=== PATIENT | female | born 1960 | race American Indian/Alaskan Native ===

== ENCOUNTER 2021-04-29 14:10 | Inpatient (IN) | payer MEDICARE ==
--- NOTE | 2021-04-29 14:59 | Event Note ---
ED Screening Note ED Screening Note: History given by patient's daughter Patient brought in by her daughter due to possible clot in her AV graft Patient last had a full dialysis treatment on Saturday04/24/2021 She states that they went to dialysis on Saturday04/26/2021 but there was a clot in the graft so she was unable to be dialyzed she states that they went to her vascular doctor Dr. Ireland yesterday to have the graft declotted She states that she took her to dialysis today but again the graft was not working and she was unable to be dialyzed This initial assessment/diagnostic orders/clinical plan/treatment(s) is/are subject to change based on patients health status, clinical progression and re- assessment by fellow clinical providers in the ED. Further treatment and workup at subsequent clinical providers discretion. Patient/guardian urged not to elope from the ED as their condition may be serious if not clinically assessed and m anaged. Initial orders include: Labs Main ED
[2021-04-29 15:25] LABS: Basophils # (Auto) 0.1 K/mm3 (0.0-0.1); Basophils % (Auto) 0.8 % (0.0-1.8); Eosinophils # (Auto) 0.3 K/mm3 (0.0-0.4); Eosinophils % (Auto) 3.5 % (0.0-4.3); Hematocrit 37.1 % (30.3-42.9); Hemoglobin 11.8 gm/dl (10.1-14.3); Lymphocytes # (Auto) 1.4 K/mm3 (1.2-5.4); Lymphocytes % (Auto) 17.6 % (13.4-35.0); Mean Corpuscular HGB Conc 32 % (30-34); Mean Corpuscular Volume 89 fl (79-97); Monocytes # (Auto) 0.8 K/mm3 (0.0-0.8); Monocytes % (Auto) 9.4 % (0.0-7.3); Platelet Count 151 K/mm3 (140-440); Red Blood Count 4.19 M/mm3 (3.65-5.03); Red Cell Distribution Width 15.7 % (13.2-15.2)
[2021-04-29 15:38] LABS: Albumin 4.4 g/dL (3.9-5); Blood Urea Nitrogen 94 mg/dL (7-17); Calcium 11.1 mg/dL (8.4-10.2); Hemolysis Index 10
[2021-04-29 15:39] LABS: Partial Thromboplastin Time 34.9 Sec. (24.2-36.6)
[2021-04-29 15:42] LABS: Alanine Aminotransferase < 5 units/L (7-56); BUN/Creatinine Ratio 5
[2021-04-29] MEDS ORDERED: DEXTROSE 50% IN WATER (25GM) 50 ML SYRINGE IV ONE (16:31)
[2021-04-29] MEDS ORDERED: INSULIN REGULAR, HUMAN 100 UNITS/1 ML IV ONE (16:31)
[2021-04-29] MEDS ORDERED: SODIUM POLYSTYRENE 15 GM/60 ML ORAL LIQD PO ONE (16:32)
[2021-04-29] MEDS ORDERED: ALBUTEROL 2.5 MG/3 ML NEBU IH ONE (16:32)
--- NOTE | 2021-04-29 16:38 | Emergency Department Report ---
ED General Adult HPI - General Chief complaint: Medical Clearance Stated complaint: GRAPH CLOTTED DIALYSIS SENT Time Seen by Provider: 04/29/21 14:57 Source: patient Mode of arrival: Wheelchair Limitations: No Limitations - History of Present Illness Initial comments: 60-year-old female, history of end-stage renal disease ([facility] dialysis schedule), presents to the ED for fistula malfunction. Patient last dialyzed on Saturday, 5 days ago. Unable to be dialyzed since because her graft clotted off. Patient was seen by her vascular surgeon, Dr. Lomax, in office on yesterday for declotting procedure. Patient went to dialysis today, but was still unable to be dialyzed. Patient was sent to the emergency room. -: days(s) (3) Location: upper extremity Quality: other (Painless) Consistency: constant Improves with: none Worsens with: none Associated Symptoms: denies: chest pain, shortness of breath Treatments Prior to Arrival: none - Related Data Home Medications Medication Instructions Recorded Confirmed Last Taken Cinacalcet [Sensipar] 30 mg PO DAILY 10/16/13 04/30/21 01/23/15 30 mg Midodrine [Proamatine] 5 mg PO BID 10/16/13 04/30/21 01/23/15 5 mg Sevelamer Carbonate [Renvela] 800 mg PO TIDWM 10/16/13 04/30/21 01/23/15 800 mg Previous Rx's Medication Instructions Recorded Last Taken Type HYDROcodone/APAP 5-325 [[place] 1 each PO Q6HR PRN #60 tablet 01/26/15 Unknown Rx 5-325 mg TAB] Allergies Allergy/AdvReac Type Severity Reaction Status Date / Time No Known Allergies Allergy Verified 10/16/13 11:08 ED Review of Systems ROS: Stated complaint: GRAPH CLOTTED DIALYSIS SENT Other details as noted in HPI Comment: All other systems reviewed and negative Constitutional: denies: fever Respiratory: denies: shortness of breath Cardiovascular: denies: chest pain ED Past Medical Hx - Past Medical History Previous Medical History?: Yes Hx Hypertension: Yes Hx Congestive Heart Failure: No Hx Diabetes: No Hx Renal Disease: Yes (dialysis m,w,f) Hx Asthma: No Hx COPD: No - Surgical History Past Surgical History?: Yes Additional Surgical History: Patient has a graft to right and left upper extremities - Social History Smoking Status: Never Smoker - Medications Home Medications: Home Medications Medication Instructions Recorded Confirmed Last Taken Type Cinacalcet [Sensipar] 30 mg PO DAILY 10/16/13 04/30/21 01/23/15 History 30 mg Midodrine [Proamatine] 5 mg PO BID 10/16/13 04/30/21 01/23/15 History 5 mg Sevelamer Carbonate [Renvela] 800 mg PO TIDWM 10/16/13 04/30/21 01/23/15 History 800 mg HYDROcodone/APAP 5-325 [[place] 1 each PO Q6HR PRN #60 tablet 01/26/15 04/30/21 Unknown Rx 5-325 mg TAB] ED Physical Exam - General Limitations: No Limitations General appearance: alert, in no apparent distress - Head Head exam: Present: atraumatic, normocephalic - Eye Eye exam: Present: normal appearance, EOMI - ENT ENT exam: Present: mucous membranes moist - Neck Neck exam: Present: normal inspection - Respiratory Respiratory exam: Present: normal lung sounds bilaterally. Absent: respiratory distress - Cardiovascular Cardiovascular Exam: Present: regular rate, normal rhythm, other (no palpable thrill in left upper extremity graft site) - GI/Abdominal GI/Abdominal exam: Present: soft. Absent: distended, tenderness - Extremities Exam Extremities exam: Present: normal inspection - Neurological Exam Neurological exam: Present: alert, oriented X3 - Psychiatric Psychiatric exam: Present: normal affect, normal mood - Skin Skin exam: Present: warm, dry, intact, normal color ED Course Vital Signs 04/29/21 04/29/21 04/29/21 14:35 16:57 19:55 Temperature 98.4 F 97.6 F Pulse Rate 75 82 83 Respiratory 18 17 18 Rate Blood Pressure Blood Pressure 129/81 139/85 115/65 [Right] O2 Sat by Pulse 94 95 96 Oximetry 04/29/21 04/29/21 04/29/21 20:10 20:15 20:30 Temperature 98.4 F Pulse Rate 79 75 93 H Respiratory 18 Rate Blood Pressure 107/67 106/65 91/57 Blood Pressure [Right] O2 Sat by Pulse Oximetry - Consultations Consultation #1: 04/29/21 16:[address] Ireland, vascular surgeon. States patient has a hero graft. He informs that he no longer has privileges at this hospital. He is okay with me calling our vascular group here at [facility]. Consultation #2: 04/29/21 17:[address] Ha, leather tacker. He is aware of the patient will arrange for dialysis. Consultation #3: 04/29/21 17:[address] Romero, vascular surgeon. Will come in to place vascular access for dialysis. ED Medical Decision Making - Lab Data Result diagrams: 04/29/21 15:01 04/30/21 07:13 - EKG Data -: EKG Interpreted by Me EKG shows normal: sinus rhythm, axis, intervals, QRS complexes, ST-T waves Rate: normal - EKG Data Interpretation: no acute changes - Medical Decision Making 60-year-old female presents to ED with clotted dialysis graft. Patient was last dialyzed 5 days ago. She was seen by her vascular surgeon on yesterday for declotting procedure, however, when she returned to dialysis today they were unable to access her graft. No palpable thrill on exam. Potassium is 6.6. Patient has no shortness of breath, she is in no respiratory distress. O2 sats are normal. Spoke with Dr. Ha, who will be arranging dialysis. Spoke with Dr. Romero, who will be placing a permacath. - Differential Diagnosis hyperkalemia, graft malfunction Critical Care Time: Yes Critical care time in (mins) excluding proc time.: 35 Critical care attestation.: If time is entered above; I have spent that time in minutes in the direct care of this critically ill patient, excluding procedure time. Critical Care Time: 35 min ED Disposition Clinical Impression: ESRD needing dialysis, Hyperkalemia Hemodialysis graft malfunction Qualifiers: Encounter type: initial encounter Qualified Code(s): T82.41XA - Breakdown (mechanical) of vascular dialysis catheter, initial encounter Disposition: DC-09 OP ADMIT IP TO THIS HOSP Is pt being admited?: Yes Condition: Stable Time of Disposition: 18:09
[2021-04-29] MEDS ORDERED: CALCIUM GLUCONATE 1,000 MG in SODIUM CHLORIDE 0.9% 100 ML IV ONE (17:00)
[2021-04-29] MEDS ORDERED: SODIUM CHLORIDE 0.9% 100 ML IV PRN (17:17)
--- NOTE | 2021-04-29 17:25 | Event Note ---
Date: 04/29/21 received call from ed for k of 6.6 with clotted hd access, orders placed for stat hd after dialysis access placement. patient aware of plan and consents to dialysis
[2021-04-29 18:27] LABS: Hepatitis B Surface Antigen Non-Reactive (Negative)
--- NOTE | 2021-04-29 18:45 | History and Physical Report ---
History of Present Illness Chief complaint: I need dialysis History of present illness: 60 YO Female with ESRD on HD(M,W,F), HTN, Obesity presents to ED for evaluation. Patient reports "I need dialysis". Patient states that she last underwent dialysis on April 24. Patient states that she has been unable to receive her routine scheduled dialysis due to clotted graft access. Patient was seen and evaluated in her vascular surgeon's office on 04/28/2021 for declotting procedure. Patient presented to her routine dialysis center today but was unable to be dialyzed due to clotted dialysis access. Patient transported to [facility] via private vehicle for further care and evaluation of the aforementioned symptoms. The pat mellisa was seen and evaluated in the emergency department. All lab and image studies reviewed. The patient was found to have end-stage renal disease in need of urgent dialysis, as well as clotted dialysis access. Vascular surgery team consulted in the emergency department. Patient is pending placement of a permacath. Patient denies fever, chills, chest pain, palpitation, productive cough, skin rash, recent ill contacts, or known exposure to COVID-19. No prior admission for review. All medication listed at time of admission has been reconciled. Advanced care planning conducted in ED. Past History Past Medical History: ESRD, hypertension Past Surgical History: Other (Dialysis access) Social history: single Family history: diabetes, hypertension Medications and Allergies Allergies Allergy/AdvReac Type Severity Reaction Status Date / Time No Known Allergies Allergy Verified 10/16/13 11:08 Home Medications Medication Instructions Recorded Confirmed Last Taken Type Cinacalcet [Sensipar] 30 mg PO DAILY 10/16/13 01/24/15 01/23/15 History 30 mg Midodrine [Proamatine] 5 mg PO BID 10/16/13 01/24/15 01/23/15 History 5 mg Sevelamer Carbonate [Renvela] 800 mg PO TIDWM 10/16/13 01/24/15 01/23/15 History 800 mg HYDROcodone/APAP 5-325 [[place] 1 each PO Q6HR PRN #60 tablet 01/26/15 Unknown Rx 5-325 mg TAB] Active Meds: Active Medications Sodium Chloride (Nacl 0.9%) 100 mls @ 999 mls/hr IV JACK PRN PRN Reason: Hypotension Review of Systems Constitutional: no weight loss Ears, nose, mouth and throat: no ear pain, no ear discharge, no tinnitis, no decreased hearing, no nose pain, no nasal congestion Cardiovascular: no chest pain, no palpitations, no edema Respiratory: no cough, no hemoptysis, no shortness of breath, no dyspnea on exertion Gastrointestinal: no abdominal pain, no nausea, no constipation, no change in bowel habits, no hematemesis Genitourinary Female: no pelvic pain, no flank pain, no dysuria, no urinary frequency, no urgency Rectal: no pain, no incontinence, no bleeding Musculoskeletal: no neck stiffness, no neck pain, no arm numbness/tingling, no low back pain, no shooting leg pain, no leg numbness/tingling Integumentary: no rash, no pruritis, no redness, no sores, no wounds, no boils Neurological: no head injury, no paralysis, no parathesias, no numbness Psychiatric: no anxiety, no change in sleep habits, no change in libido Endocrine: no cold intolerance, no polyphagia, no excessive thirst, no polyuria, no nocturia, no flushing Hematologic/Lymphatic: no easy bruising, no easy bleeding, no lymphadenopathy Allergic/Immunologic: no urticaria, no persistent infections Exam - Constitutional Vitals: Temp Pulse Resp BP Pulse Ox 98.4 F 82 17 139/85 95 04/29/21 14:35 04/29/21 16:57 04/29/21 16:57 04/29/21 16:57 04/29/21 16:57 General appearance: Present: mild distress - EENT Eyes: Present: PERRL ENT: hearing intact, clear oral mucosa - Neck Neck: Present: supple, normal ROM - Respiratory Respiratory effort: normal Respiratory: bilateral: CTA - Cardiovascular Heart Sounds: Present: S1 & S2. Absent: rub, click - Extremities Extremities: pulses symmetrical, No edema Peripheral Pulses: within normal limits - Abdominal General gastrointestinal: Present: soft, non-tender, non-distended, normal bowel sounds Female genitourinary: Present: normal - Integumentary Integumentary: Present: clear, warm, dry - Musculoskeletal Musculoskeletal: gait normal, strength equal bilaterally - Psychiatric Psychiatric: appropriate mood/affect, intact judgment & insight - Neurologic Neurologic: CNII-XII intact, moves all extremities Results - Labs CBC & Chem 7: 04/29/21 15:01 04/29/21 15:01 Labs: Abnormal lab results 04/29/21 04/29/21 Range/Units 15:01 15:01 RDW 15.7 H (13.2-15.2) % [place] % (Auto) 9.4 H (0.0-7.3) % Potassium 6.6 H* (3.6-5.0) mmol/L BUN 94 H (7-17) mg/dL Creatinine 18.6 H (0.6-1.2) mg/dL Calcium 11.1 H (8.4-10.2) mg/dL AST < 5 L (5-40) units/L ALT < 5 L (7-56) units/L Assessment and Plan - Patient Problems (1) ESRD needing dialysis Current Visit: Yes Status: Acute Plan to address problem: Nephrology team consulted, dialysis as per renal team, supportive care. Avoid nephrotoxic agents. (2) Obesity (BMI 30.0-34.9) Current Visit: Yes Status: Acute Plan to address problem: Balanced diet, increase physical activity at discharge, outpatient pulmonary follow-up for sleep study. (3) Hemodialysis graft malfunction Current Visit: Yes Status: Acute Qualifiers: Encounter type: initial encounter Qualified Code(s): T82.41XA - Breakdown (mechanical) of vascular dialysis catheter, initial encounter Plan to address problem: Vascular surgery team consulted patient pending permacath placement (4) Hyperkalemia Current Visit: Yes Status: Acute Plan to address problem: Kayexalate, calcium gluconate, urgent dialysis. No EKG changes. (5) DVT prophylaxis Current Visit: Yes Status: Acute Plan to address problem: SCD to bilateral lower extremities while in bed, patient is ambulatory (6) Advance care planning Current Visit: Yes Status: Acute Plan to address problem: Disease education conducted, care plan discussed, diagnoses discussed, prognosis discussed, patient and daughter knowledges understanding and agreement with care plan, +30 minutes.
[2021-04-29 18:51] LABS: Hepatitis C Virus Antibody Non-Reactive (NonReactive)
--- NOTE | 2021-04-29 19:09 | Operative Report ---
Operative Report Operative Report: Exam: Ultrasound guided placement of Vas-Cath Clinical indication: Patient with a history of end-stage renal disease on hemodialysis through a left upper arm loop graft. Graft has been clotted and was intervened on by [facility] vascular on Saturday without success. Patient has not had dialysis since Saturday and is hyperkalemic. Date: 04/29/2021 Procedure: Following an explanation of the risks, benefits and alternatives; written informed consent was obtained. The procedure was performed in the emergency department. Initial ultrasound evaluation of the patient's right groin demonstrated a patent right common femoral vein. The patient's right groin was prepped and draped in the usual sterile fashion. 1% lidocaine was used for anesthesia. Under ultrasound guidance, a 7 cm 18-gauge needle was advanced into the common femoral vein. A 0.035 guidewire advanced centrally easily. The needle was rem selwyn and following serial dilation over the guidewire, a 30 cm dialysis catheter was advanced over the guidewire centrally. The guidewire was removed. Nonpulsatile blood return from all 3 ports. The catheter was flushed and locked with sterile saline. The catheter was securely fastened to the skin surface using 2-0 nylon suture and a sterile dressing applied. The patient tolerated the procedure well. There were no immediate postprocedure complications. Impression: Ultrasound-guided placement of 30 cm Vas-Cath via the right common femoral vein.
[2021-04-29] MEDS ORDERED: oxyCODONE /ACETAMINOPHEN 5-325MG TAB PO PRN (19:30)
[2021-04-29] MEDS ORDERED: HYDROmorphone 1 MG/1 ML INJ IV PRN (19:30)
[2021-04-29] MEDS ORDERED: ONDANSETRON 4 MG/2 ML INJ IV PRN (19:30)
[2021-04-29] MEDS ORDERED: ACETAMINOPHEN 325 MG TAB PO PRN (19:30)
[2021-04-29] MEDS ORDERED: ALBUTEROL 2.5 MG/3 ML NEBU IH PRN (19:30)
[2021-04-29] MEDS: MIDODRINE 5 MG TAB PO SCH (21:33)
[2021-04-30] MEDS: CINACALCET 30 MG TAB PO SCH (09:16)
[2021-04-30] MEDS: MIDODRINE 5 MG TAB PO SCH ×2 (09:16→21:25)
[2021-04-30] MEDS: SEVELAMER CARBONATE 800 MG TAB PO SCH ×3 (09:16→18:04)
[2021-04-30 09:36] LABS: Albumin 3.8 g/dL (3.9-5); Blood Urea Nitrogen 30 mg/dL (7-17); Calcium 10.3 mg/dL (8.4-10.2); Hemolysis Index 0
[2021-04-30 09:37] LABS: Alanine Aminotransferase < 5 units/L (7-56); BUN/Creatinine Ratio 3
--- NOTE | 2021-04-30 12:35 | Consultation ---
History of Present Illness - Reason for Consult Consult date: 04/30/21 end stage renal disease, hyperkalemia Requesting physician: ROBERT MARC - History of Present Illness 60-year-old female, history of end-stage renal disease ([facility] dialysis schedule), presents to the ED for fistula malfunction. Patient last dialyzed on Saturday, 5 days ago. Unable to be dialyzed since because her graft clotted off. Patient was seen by her vascular surgeon, Dr. Lomax, in office on yesterday for declotting procedure. Patient went to dialysis today, but was still unable to be dialyzed. Patient was sent to the emergency room. -: days(s) (3) Location: upper extremity Quality: other (Painless) Consistency: constant Improves with: none Worsens with: none Associated Symptoms: denies: chest pain, shortness of breath Treatments Prior to Arrival: none ROS: Stated complaint: GRAPH CLOTTED DIALYSIS SENT Other details as noted in HPI Comment: All other systems reviewed and negative Constitutional: denies: fever Respiratory: denies: shortness of breath Cardiovascular: denies: chest pain - Past Medical History Previous Medical History?: Yes Hx Hypertension: Yes Hx Congestive Heart Failure: No Hx Diabetes: No Hx Renal Disease: Yes (dialysis m,w,f) Hx Asthma: No Hx COPD: No - Surgical History Past Surgical History?: Yes Additional Surgical History: Patient has a graft to right and left upper extremities - Social History Smoking Status: Never Smoker Past History Past Medical History: ESRD, hypertension Past Surgical History: Other (Dialysis access) Social history: single Family history: diabetes, hypertension Medications and Allergies Allergies Allergy/AdvReac Type Severity Reaction Status Date / Time No Known Allergies Allergy Verified 10/16/13 11:08 Home Medications Medication Instructions Recorded Confirmed Last Taken Type Cinacalcet [Sensipar] 30 mg PO DAILY 10/16/13 04/30/21 01/23/15 History 30 mg Midodrine [Proamatine] 5 mg PO BID 10/16/13 04/30/21 01/23/15 History 5 mg Sevelamer Carbonate [Renvela] 800 mg PO TIDWM 10/16/13 04/30/21 01/23/15 History 800 mg HYDROcodone/APAP 5-325 [[place] 1 each PO Q6HR PRN #60 tablet 01/26/15 04/30/21 Unknown Rx 5-325 mg TAB] Active Meds: Active Medications Acetaminophen (Acetaminophen 325 Mg Tab) 650 mg PO Q4H PRN PRN Reason: Pain MILD(1-3)/Fever >100.5/SCHRADER Albuterol (Albuterol 2.5 Mg/3 Ml Nebu) 2.5 mg IH Q4HRT PRN PRN Reason: Shortness Of Breath Cinacalcet (Cinacalcet 30 Mg Tab) 30 mg PO DAILY [facility] Last Admin: 04/30/21 09:16 Dose: 30 mg Documented by: Hydromorphone HCl (Hydromorphone 1 Mg/1 Ml Inj) 0.5 mg IV Q12H PRN PRN Reason: Pain , Severe (7-10) Sodium Chloride (Nacl 0.9%) 100 mls @ 999 mls/hr IV JACK PRN PRN Reason: Hypotension Midodrine (Midodrine 5 Mg Tab) 5 mg PO BID [facility] Last Admin: 04/30/21 09:16 Dose: 5 mg Documented by: Ondansetron HCl (Ondansetron 4 Mg/2 Ml Inj) 4 mg IV Q8H PRN PRN Reason: Nausea And Vomiting Oxycodone/Acetaminophen (Oxycodone /Acetaminophen 5-325mg Tab) 1 tab PO Q12H PRN PRN Reason: Pain, Moderate (4-6) Sevelamer Carbonate (Sevelamer Carbonate 800 Mg Tab) 800 mg PO TIDWM [facility] Last Admin: 04/30/21 09:16 Dose: 800 mg Documented by: Sodium Chloride (Sodium Chloride 0.9% 10 Ml Flush Syringe) 10 ml IV BID [facility] Last Admin: 04/30/21 09:16 Dose: 10 ml Documented by: Sodium Chloride (Sodium Chloride 0.9% 10 Ml Flush Syringe) 10 ml IV PRN PRN PRN Reason: LINE FLUSH Exam - Vital Signs Vital signs: Vital Signs Temp Pulse Resp BP Pulse Ox 98.4 F 75 18 129/81 94 04/29/21 14:35 04/29/21 14:35 04/29/21 14:35 04/29/21 14:35 04/29/21 14:35 - Physical Exam Narrative exam: - General Limitations: No Limitations General appearance: alert, in no apparent distress - Head Head exam: Present: atraumatic, normocephalic - Eye Eye exam: Present: normal appearance, EOMI - ENT ENT exam: Present: mucous membranes moist - Neck Neck exam: Present: normal inspection - Respiratory Respiratory exam: Present: normal lung sounds bilaterally. Absent: respiratory distress - Cardiovascular Cardiovascular Exam: Present: regular rate, normal rhythm, other (no palpable thrill in left upper extremity graft site) - GI/Abdominal GI/Abdominal exam: Present: soft. Absent: distended, tenderness - Extremities Exam Extremities exam: Present: normal inspection - Neurological Exam Neurological exam: Present: alert, oriented X3 - Psychiatric Psychiatric exam: Present: normal affect, normal mood - Skin Skin exam: Present: warm, dry, intact, normal color Results - Lab Results 04/29/21 15:01 04/30/21 07:13 Most recent lab results Calcium 10.3 mg/dL (8.4-10.2) H 04/30/21 07:13 Assessment and Plan Impression: * ESRD * Hyperkalemia * Malfunctioning av access * HTN * anemia in ESRD Plan: * s/p hd for hyperkalemia * will need av access repair, plan NPO after MN, IR for thrombectomy * plan hd q MWF * uf as tolerated * renal diet * strict i/os
[2021-04-30] MEDS ORDERED: SODIUM CHLORIDE 0.9% 100 ML IV PRN (13:30)
--- NOTE | 2021-04-30 15:53 | Progress Note ---
Assessment and Plan -- ESRD needing dialysis Nephrology team consulted, dialysis as per renal team, supportive care. Avoid nephrotoxic agents. -- Hemodialysis graft malfunction Vascular surgery team consulted, s/p vascath placement planned for thrombectomy tomorrow -- Hyperkalemia s/p Kayexalate, calcium gluconate, urgent dialysis. No EKG changes. monitor BMP --DVT prophylaxis SCD to bilateral lower extremities while in bed, patient is ambulatory -- Advance care planning Disease education conducted, care plan discussed, diagnoses discussed, prognosis discussed, patient and daughter knowledges understanding and agreement with care plan, +30 minutes. Daily clinical course: 04/30/21; s/p emergent vascath and hd for hyperkalemia, will need av access repair, plan NPO after MN, IR consulted for thrombectomy. Subjective Date of service: 04/30/21 Interval history: Patient seen and examined. Medical records and medication list reviewed. No acute event overnight noted by the RN. Patient denies any chest pain or difficulty breathing. Patient is tolerating diet. Status post emergent dialysis and Vas-Cath placement Discussed plan of care at bedside with patient. Objective - Exam Narrative Exam: GENERAL: well-developed and well-nourished AAM lying on bed appeared to be in no discomfort. HEENT: Normocephalic. Atraumatic. No conjunctival congestion or icterus. Patient has moist mucous membranes. NECK: Supple. Trachea midline. CHEST/LUNGS: Clear to auscultated bilaterally, breathing nonlabored. No wheezes crackles or rhonchi. HEART/CARDIOVASCULAR: Regular in rate and rhythm. S1 and S2 positive. ABDOMEN: Abdomen is soft, nontender. Patient has normal bowel sounds. SKIN: There is no rash. Warm and dry. NEURO: No focal motor deficit. Follows command. MUSCULOSKELETAL: No joint effusion or tenderness. EXTRIMITY: No edema, no cyanosis or clubbing. PSYCH: Cooperative. - Constitutional Vitals: Vital Signs - 12hr 04/30/21 04/30/21 04/30/21 04:17 07:57 10:54 Temperature 97.9 F 98.0 F Pulse Rate 71 83 Respiratory 18 22 Rate Blood Pressure 121/71 96/62 O2 Sat by Pulse 99 100 94 Oximetry - Labs CBC & Chem 7: 05/01/21 23:57 05/02/21 07:23 Labs: Abnormal lab results 04/30/21 Range/Units 07:13 BUN 30 H (7-17) mg/dL Creatinine 9.9 H (0.6-1.2) mg/dL Calcium 10.3 H (8.4-10.2) mg/dL ALT < 5 L (7-56) units/L Albumin 3.8 L (3.9-5) g/dL
[2021-05-01] MEDS: SEVELAMER CARBONATE 800 MG TAB PO SCH ×3 (08:02→16:59)
[2021-05-01] MEDS ORDERED: MIDAZOLAM 2 MG/2 ML INJ ONE (09:07)
[2021-05-01] MEDS ORDERED: fentaNYL 100 MCG/2 ML INJ ONE (09:07)
[2021-05-01] MEDS ORDERED: HEPARIN/NS 5000 UNIT/500ML 1,000 ML IR ONE (09:08)
[2021-05-01] MEDS ORDERED: HEPARIN 10,000 UNITS/10 ML VIAL ONE (09:08)
[2021-05-01] MEDS ORDERED: SODIUM CHLORIDE 0.9% 500 ML 500 ML ONE (09:26)
[2021-05-01] MEDS ORDERED: ceFAZolin/Water 2 GM/20 ML 2 GM/20 ML SYRINGE IV ONE (09:56)
[2021-05-01] MEDS: LIDOCAINE 1%/EPINEPHRINE 1:100,000 VIAL (20 ML) INFILTRATI ONE ×2 (09:58→10:57)
[2021-05-01] MEDS ORDERED: ALTEPLASE 2 MG INJ ONE ×2 (10:03→10:07)
[2021-05-01] MEDS ORDERED: WATER FOR INJ Sterile (PF) 10 ML ONE (10:03)
--- NOTE | 2021-05-01 12:42 | Post Operative Note ---
Date of procedure: 05/01/21 Pre-op diagnosis: ESRD with thrombosed AVG Post-op diagnosis: same Findings: Successful thrombectomy of the left arm AV graft and angioplasty of the peripheral and central dialysis access Successful balloon tamponade of back wall puncture site from prior attempts at thrombectomy at outside facility Procedure: 1. Ultrasound-guided access of the left arm AV graft towards the hero graft 2. Fistulogram. 3. Infusion of 6 mg of TPA throughout the central veins (hero graft) and left arm AV graft 4. Angioplasty throughout the central veins (hero graft) in left arm AV graft with a 7 mm x 200 mm angioplasty balloon 5. Trerotola mechanical thrombectomy of the left arm AV graft 6. Bhpuendra thrombectomy, 8 mm x 40 mm angioplasty balloon, and 6 mm x 40 mm angioplasty balloon from the venous sheath to the central veins 7. Angioplasty of the hero graft with a 6 mm x 200 mm angioplasty balloon 8. Ultrasound-guided access of the left arm AV graft towards the arterial anastomosis 9. Selection of the axillary artery in a retrograde fashion with angiography of the left upper extremity 10. Bhupendra thrombectomy from the arterial anastomosis to the venous sheath. 11. Angioplasty of the left arm AV graft with an 8 mm x 100 mm angioplasty balloon with balloon tamponade for 5 minutes, 7 minutes, and 10 minutes Anesthesia: local (With conscious sedation) Surgeon: TIFFANIE SYKES Estimated blood loss: minimal Condition: stable Disposition: floor
--- NOTE | 2021-05-01 12:51 | Operative Report ---
Operative Report Operative Report: EXAM: 1. Ultrasound-guided access of the left arm AV graft towards the hero graft 2. Fistulogram. 3. Infusion of 6 mg of TPA throughout the central veins (hero graft) and left arm AV graft 4. Angioplasty throughout the central veins (hero graft) in left arm AV graft with a 7 mm x 200 mm angioplasty balloon 5. Trerotola mechanical thrombectomy of the left arm AV graft 6. Julia thrombectomy, 8 mm x 40 mm angioplasty balloon, and 6 mm x 40 mm angioplasty balloon from the venous sheath to the central veins 7. Angioplasty of the hero graft with a 6 mm x 200 mm angioplasty balloon 8. Ultrasound-guided access of the left arm AV graft towards the arterial anastomosis 9. Selection of the axillary artery in a retrograde fashion with angiography of the left upper extremity 10. Julia thrombectomy from the arterial anastomosis to the venous sheath. 11. Angioplasty of the left arm AV graft with an 8 mm x 100 mm angioplasty balloon with balloon tamponade for 5 minutes, 7 minutes, and 10 minutes INDICATION: THROMBOSED LEFT ARM AV GRAFT WITH END-STAGE RENAL DISEASE. DATE: 05/01/2021 MEDICATIONS: Please refer to nursing documentation for complete list of medications and heparin administration. ANESTHESIA: Conscious sedation COMPLICATIONS: NONE IMMEDIATE BARREL STRAIGHTENER: TIFFANIE SYKES MD PROCEDURE: The procedure was discussed with the patient and the risks, benefits, and alternatives were discussed with the patient. Informed consent was obtained. The patient was transported into the angiography suite in stable condition and placed on the angiographic table. The left arm was assessed under real-time ultrasound which demonstrated a thrombosed left arm AV graft. The patient was pr epped and draped in a sterile fashion. Of note, the hero graft arose from the left upper extremity loop graft and then passed to the right chest from the left chest and then passed into the right in ternal jugular vein and into the SVC. Lidocaine was used to anesthetize the skin. Under ultrasound guidance, the AV graft was punctured with the needle pointing towards the venous limb. 0.018 inch wire was advanced through the needle and this was exchanged for a transitional dilator. The inner dilator and wire were removed and a 0.035 inch Glidewire advantage wire was advanced through the transitional dilator. The dilator was exchanged for a 7 Russian short sheath. Angled catheter was advanced over the wire and the wire was advanced into the graft, hero graft, extended hero graft and into the inferior vena cava under fluoroscopic guidance. Then the wire was removed and the Angled catheter was used to perform a pullback venogram demonstrating occlusion of the hero graft and graft. The right atrium was patent. The SVC had a hero graft within it. 6 mg of TPA were infused through the length of the clot to the sheath as the arterial anastomosis was manually compressed. Catheter was exchanged for an 7 mm x 200 mm balloon and the SVC, extended hero graft, hero graft, and graft were sequentially venoplasty. Trerotola thrombectomy device was used multiple times through the AV graft but not in the hero graft. Trerotola device was then removed. Angled catheter and Virk wire were negotiated into the inferior vena cava. The julia balloon was used to sweep from the sheath to the central veins through the extended hero graft, but could not completely passed through the hero graft. Therefore a 8 mm x 40 mm angioplasty balloon was attempted and ultimately a 6 mm x 40 mm tor oplasty balloon was attempted to sweep the central veins. Ultimately, 6 mm x 200 mm angioplasty balloon had to be used to perform angioplasty of the most central portion of the hero graft. The arm was then punctured towards the arterial anastomosis under ultrasound guidance. 0.018 inch wire was advanced through the needle and exchanged for transitional dilator. The inner dilator and wire were removed and a 0.035 inch Glidewire wire was advanced to the transitional dilator and into the axillary artery in a retrograde fashion. The dilator was exchanged for 6 Russian short sheath. The angled catheter was advanced over the 0.035 wire and the wire was advanced into the [place] brachial artery in a retrograde fashion. Digital subtraction angiography was performed which demonstrated patency of the axillary artery proximal and distal to the anastomosis with sluggish flow in the AV graft which was partially occluded. Julia catheter was inflated and use to sweep the anastomosis multiple times, pulling the plug towards the venous limb. Blood was aspirated from both sheaths. Julia catheter was exchanged for the angled catheter and digital subtraction angiography was performed. Digital subtraction angiography demonstrated patency of the axillary artery proximal and distal to the anastomosis, patency of the arterial anastomosis, patency of the AV graft, patency of the hero graft, and patency of the extended hero graft with patency of the right atrium. Unfortunately, there was an area of extravasation at the area of prior dialysis access from outside facility. This did not correspond to bleeding on the skin and likely sales solutions representative backwall puncture from outside facility. 8 mm x 100 mm angioplasty balloon was used to perform tamponade of the graft to the area of extravasation which was performed with external compression of the area of small hematoma and this was performed for 5 minutes, rechecked, and additional 7 minutes, and rechecked again and an additional 10 minutes the balloon was inflated. Ultimately, digital subtraction angiography was performed demonstrating no extravasation with patent flow throughout the graft. At this point, there is an excellent thrill, and no significant residual narrowing. All the wires were removed. Tip stop devices were used to close the graft access sites. Pressure was held until hemostasis was achieved. The patient was then transferred to the outpatient recovery area. FINDINGS: Please see the procedure note for the findings. IMPRESSION: 1. Successful pharmacomechanical thrombectomy of the thrombosed left AV graft with peripheral dialysis access angioplasty and central dialysis access angioplasty.
--- NOTE | 2021-05-01 12:54 | Event Note ---
Date: 05/01/21 60-year-old female with end-stage renal disease and multiple comorbidities with left arm AV graft with associated hero graft which loops from the left upper extremity to the right internal jugular vein. Unless there is a contraindication, recommend initiation of Eliquis 2.5 mg p.o. twice daily to prevent graft thrombosis given the extensive length of the graft. Had to apply pressure bandage to area of backwall bleeding which was treated with internal balloon tamponade and external dressing. This was most likely c aused at outside facility during attempt at thrombectomy. Can remove bandages tomorrow morning. Can attempt dialysis access to the AV access tomorrow morning. If successful, then can remove right groin dialysis line and patient can be discharged from vascular perspective.
--- NOTE | 2021-05-01 13:48 | Progress Note ---
Assessment and Plan -- ESRD needing dialysis Nephrology team consulted, dialysis as per renal team, supportive care. Avoid nephrotoxic agents. -- Hemodialysis graft malfunction Vascular surgery team consulted, s/p vascath placement s/p thrombectomy today -- Hyperkalemia s/p Kayexalate, calcium gluconate, urgent dialysis. No EKG changes. monitor BMP --DVT prophylaxis SCD to bilateral lower extremities while in bed, patient is ambulatory -- Advance care planning Disease education conducted, care plan discussed, diagnoses discussed, prognosis discussed, patient and daughter knowledges understanding and agreement with care plan, +30 minutes. Daily clinical course: 04/30/21; s/p emergent vascath and hd for hyperkalemia, will need av access repair, plan NPO after MN, IR consulted for thrombectomy. 05/01/21: s/p thrombectomy today, planned for HD tomorrow if able to access AV graft during HD then will d/c home tomorrow per vascular recommendation. Subjective Date of service: 05/01/21 Interval history: Patient seen and examined. Medical records and medication list reviewed. No acute event overnight noted by the RN. Patient denies any chest pain or difficulty breathing. s/p thrombectomy today Discussed plan of care at bedside with patient. Objective - Exam Narrative Exam: GENERAL: well-developed and well-nourished AAM lying on bed appeared to be in no discomfort. HEENT: Normocephalic. Atraumatic. No conjunctival congestion or icterus. Patient has moist mucous membranes. NECK: Supple. Trachea midline. CHEST/LUNGS: Clear to auscultated bilaterally, breathing nonlabored. No wheezes crackles or rhonchi. HEART/CARDIOVASCULAR: Regular in rate and rhythm. S1 and S2 positive. ABDOMEN: Abdomen is soft, nontender. Patient has normal bowel sounds. SKIN: There is no rash. Warm and dry. NEURO: No focal motor deficit. Follows command. MUSCULOSKELETAL: No joint effusion or tenderness. EXTRIMITY: No edema, no cyanosis or clubbing. PSYCH: Cooperative. - Constitutional Vitals: Vital Signs - 12hr 05/01/21 05/01/21 05:29 12:36 Temperature 98.8 F 97.4 F L Pulse Rate 85 81 Respiratory 18 18 Rate Blood Pressure 124/52 95/76 O2 Sat by Pulse 99 97 Oximetry - Labs CBC & Chem 7: 05/01/21 23:57 05/02/21 07:23
[2021-05-01] MEDS: MIDODRINE 5 MG TAB PO SCH ×3 (13:50→21:56)
[2021-05-01] MEDS: CINACALCET 30 MG TAB PO SCH (13:51)
--- NOTE | 2021-05-01 16:25 | Event Note ---
Date: 05/01/21 Patient not seen on renal rounds this AM as she was in procedure. Reviewed Dr. Martinez's note, plan for HD in AM via AVG
--- NOTE | 2021-05-01 17:56 | Electrocardiograph Report ---
[facility] Test Date: 2021-04-29 Test Time: 18:12:39 Pat Name: MIKHAIL TATE Department: Room: A379 Gender: F Food Counter Attendant: NURSE : 1960 Requested By: ROBERT MARC Order Number: [id number] Reading MD: William Flores Measurements Intervals Stone Rate: 73 P: 6 IL: 125 QRS: 20 QRSD: 68 T: 76 QT: 379 QTc: 419 Interpretive Statements Sinus rhythm Low voltage, precordial leads No previous ECG available for comparison Electronically Signed On 05-01-2021 17:55:29 EDT by William Flores
[2021-05-01] MEDS: APIXABAN 2.5 MG TAB PO SCH (21:56)
[2021-05-02 00:32] LABS: Hematocrit 31.1 % (30.3-42.9); Hemoglobin 10.1 gm/dl (10.1-14.3); Mean Corpuscular HGB Conc 33 % (30-34); Mean Corpuscular Volume 85 fl (79-97); Platelet Count 127 K/mm3 (140-440); Red Blood Count 3.65 M/mm3 (3.65-5.03); Red Cell Distribution Width 15.7 % (13.2-15.2)
[2021-05-02 00:43] LABS: INR 1.06 (0.87-1.13)
[2021-05-02 00:44] LABS: Partial Thromboplastin Time 34.3 Sec. (24.2-36.6)
[2021-05-02] MEDS: MIDODRINE 5 MG TAB PO SCH (09:33)
[2021-05-02] MEDS: SEVELAMER CARBONATE 800 MG TAB PO SCH ×3 (09:33→17:35)
[2021-05-02] MEDS: APIXABAN 2.5 MG TAB PO SCH (09:34)
[2021-05-02] MEDS: CINACALCET 30 MG TAB PO SCH (09:34)
[2021-05-02 09:42] LABS: Calcium 10.2 mg/dL (8.4-10.2)
--- NOTE | 2021-05-02 10:09 | Progress Note ---
Assessment and Plan Impression: * ESRD * Hyperkalemia * Malfunctioning av access * HTN * anemia in ESRD Plan: * s/p AV access thrombectomy, appreciate vascular * Will attempt HD today for toxin/electrolyte management, volume * Plan to continue HD q MWF per outpatient thereafter or prn * uf as tolerated * renal diet * strict i/os Subjective Date of service: 05/02/21 Interval history: Resting this AM, had thrombectomy yesterday per Dr. Martinez Objective - Exam Narrative Exam: - General Limitations: No Limitations General appearance: alert, in no apparent distress - Head Head exam: Present: atraumatic, normocephalic - Eye Eye exam: Present: normal appearance, EOMI - ENT ENT exam: Present: mucous membranes moist - Neck Neck exam: Present: normal inspection - Respiratory Respiratory exam: Present: normal lung sounds bilaterally. Absent: respiratory distress - Cardiovascular Cardiovascular Exam: Present: regular rate, normal rhythm - GI/Abdominal GI/Abdominal exam: Present: soft. Absent: distended, tenderness - Extremities Exam Extremities exam: Present: normal inspection - Neurological Exam Neurological exam: Present: alert, oriented X3 - Psychiatric Psychiatric exam: Present: normal affect, normal mood - Skin Skin exam: Present: warm, dry, intact, normal color - Vital Signs Vital signs: Vital Signs - 12hr 05/02/21 05/02/21 04:34 09:20 Pulse Rate 97 H Respiratory 18 Rate Blood Pressure 92/42 O2 Sat by Pulse 97 100 Oximetry - Lab 05/01/21 23:57 05/02/21 07:23 Most recent lab results Calcium 10.2 mg/dL (8.4-10.2) 05/02/21 07:23 Medications & Allergies - Medications Allergies/Adverse Reactions: Allergies No Known Allergies Allergy (Verified 10/16/13 11:08) Home Medications: Home Medications Medication Instructions Recorded Confirmed Last Taken Type Cinacalcet [Sensipar] 30 mg PO DAILY 10/16/13 04/30/21 01/23/15 History 30 mg Midodrine [Proamatine] 5 mg PO BID 10/16/13 04/30/21 01/23/15 History 5 mg Sevelamer Carbonate [Renvela] 800 mg PO TIDWM 10/16/13 04/30/21 01/23/15 History 800 mg HYDROcodone/APAP 5-325 [[place] 1 each PO Q6HR PRN #60 tablet 01/26/15 04/30/21 Un known Rx 5-325 mg TAB] Active Medications: Generic Name Dose Route Start Last Admin Trade Name Katie PRN Reason Stop Dose Admin Acetaminophen 650 mg 04/29/21 19:30 Acetaminophen 325 Mg Tab PO Q4H PRN Pain MILD(1-3)/Fever >100.5/SCHRADER Albuterol 2.5 mg 04/29/21 19:30 Albuterol 2.5 Mg/3 Ml Nebu IH Q4HRT PRN Shortness Of Breath Apixaban 2.5 mg 05/01/21 22:00 05/02/21 09:34 Apixaban 2.5 Mg Tab PO 2.5 mg Q12HR ALE Administration Protocol Cinacalcet 30 mg 04/30/21 10:00 05/02/21 09:34 Cinacalcet 30 Mg Tab PO 30 mg DAILY ALE Administration Hydromorphone HCl 0.5 mg 04/29/21 19:30 Hydromorphone 1 Mg/1 Ml Inj IV Q12H PRN Pain , Severe (7-10) Sodium Chloride 100 mls @ 999 mls/hr 04/30/21 13:30 Nacl 0.9% IV JACK PRN Hypotension Midodrine 5 mg 04/29/21 22:00 05/02/21 09:33 Midodrine 5 Mg Tab PO 5 mg BID ALE Administration Ondansetron HCl 4 mg 04/29/21 19:30 05/01/21 17:41 Ondansetron 4 Mg/2 Ml Inj IV 4 mg Q8H PRN Administration Nausea And Vomiting Oxycodone/Acetaminophen 1 tab 04/29/21 19:30 Oxycodone /Acetaminophen 5-325mg Tab PO Q12H PRN Pain, Moderate (4-6) Sevelamer Carbonate 800 mg 04/30/21 08:00 05/02/21 09:33 Sevelamer Carbonate 800 Mg Tab PO 800 mg TIDWM ALE Administration Sodium Chloride 10 ml 04/29/21 22:00 05/02/21 09:34 Sodium Chloride 0.9% 10 Ml Flush Syringe IV 10 ml BID ALE Administration Sodium Chloride 10 ml 04/29/21 19:30 Sodium Chloride 0.9% 10 Ml Flush Syringe IV PRN PRN LINE FLUSH
--- NOTE | 2021-05-02 10:59 | Progress Note ---
Subjective Date of service: 05/02/21 Principal diagnosis: Thrombosed AVG Interval history: Successful thrombectomy of the left arm AVG-hero graft. Successfully used during dialysis. Can remove trialysis in right groin after dialysis. Can be discharged from vascular perspective. Objective - Constitutional Vitals: Vital Signs - 12hr 05/02/21 05/02/21 04:34 09:20 Pulse Rate 97 H Respiratory 18 Rate Blood Pressure 92/42 O2 Sat by Pulse 97 100 Oximetry - Labs CBC & Chem 7: 05/01/21 23:57 05/02/21 07:23 Labs: Abnormal lab results 05/01/21 05/01/21 05/02/21 Range/Units 23:57 23:57 07:23 WBC 11.7 H (4.5-11.0) K/mm3 RDW 15.7 H (13.2-15.2) % Plt Count 127 L (140-440) K/mm3 Sodium 133 L D (137-145) mmol/L Chloride 92.2 L (98-107) mmol/L BUN 22 H (7-17) mg/dL Creatinine 6.7 H 8.2 H (0.6-1.2) mg/dL Medications & Allergies - Medications Allergies/Adverse Reactions: Allergies No Known Allergies Allergy (Verified 10/16/13 11:08) Home Medications: Home Medications Medication Instructions Recorded Confirmed Last Taken Type Cinacalcet [Sensipar] 30 mg PO DAILY 10/16/13 04/30/21 01/23/15 History 30 mg Midodrine [Proamatine] 5 mg PO BID 10/16/13 04/30/21 01/23/15 History 5 mg Sevelamer Carbonate [Renvela] 800 mg PO TIDWM 10/16/13 04/30/21 01/23/15 History 800 mg HYDROcodone/APAP 5-325 [[place] 1 each PO Q6HR PRN #60 tablet 01/26/15 04/30/21 Unknown Rx 5-325 mg TAB] Active Medications: Generic Name Dose Route Start Last Admin Trade Name Freq PRN Reason Stop Dose Admin Acetaminophen 650 mg 04/29/21 19:30 Acetaminophen 325 Mg Tab PO Q4H PRN Pain MILD(1-3)/Fever >100.5/SCHRADER Albuterol 2.5 mg 04/29/21 19:30 Albuterol 2.5 Mg/3 Ml Nebu IH Q4HRT PRN Shortness Of Breath Apixaban 2.5 mg 05/01/21 22:00 05/02/21 09:34 Apixaban 2.5 Mg Tab PO 2.5 mg Q12HR ALE Administration Protocol Cinacalcet 30 mg 04/30/21 10:00 05/02/21 09:34 Cinacalcet 30 Mg Tab PO 30 mg DAILY ALE Administration Hydromorphone HCl 0.5 mg 04/29/21 19:30 Hydromorphone 1 Mg/1 Ml Inj IV Q12H PRN Pain , Severe (7-10) Sodium Chloride 100 mls @ 999 mls/hr 04/30/21 13:30 Nacl 0.9% IV JACK PRN Hypotension Midodrine 5 mg 04/29/21 22:00 05/02/21 09:33 Midodrine 5 Mg Tab PO 5 mg BID ALE Administration Ondansetron HCl 4 mg 04/29/21 19:30 05/01/21 17:41 Ondansetron 4 Mg/2 Ml Inj IV 4 mg Q8H PRN Administration Nausea And Vomiting Oxycodone/Acetaminophen 1 tab 04/29/21 19:30 Oxycodone /Acetaminophen 5-325mg Tab PO Q12H PRN Pain, Moderate (4-6) Sevelamer Carbonate 800 mg 04/30/21 08:00 05/02/21 09:33 Sevelamer Carbonate 800 Mg Tab PO 800 mg TIDWM ALE Administration Sodium Chloride 10 ml 04/29/21 22:00 05/02/21 09:34 Sodium Chloride 0.9% 10 Ml Flush Syringe IV 10 ml BID ALE Administration Sodium Chloride 10 ml 04/29/21 19:30 Sodium Chloride 0.9% 10 Ml Flush Syringe IV PRN PRN LINE FLUSH
--- NOTE | 2021-05-02 14:20 | Discharge Summary ---
Providers - Providers Date of Admission: 05/01/21 08:25 Date of discharge: 05/02/21 Attending physician: ZAINAB CAMPOS 04/29/21 16:57 Consult to Physician [CONS] Stat Comment: Consulting Provider: TIFFANIE SAPP Physician Instructions: Reason For Exam: vascular access for dialysis Consult to Physician [CONS] Stat Comment: Consulting Provider: DOMINIK CHILDS Physician Instructions: Reason For Exam: hyperkalemia Hospitalization Condition: Stable Hospital course: 60 YO Female with ESRD on HD(M,W,F), HTN, presents to ED for HD. Patient states that she has been unable to receive her routine scheduled dialysis due to clotted graft access. In the ER patient noted to have potassium of 6.6 with clotted hemodialysis access. Patient was treated medically per protocol for hyperkalemia. Vascular was consulted for emergent Vas-Cath placement. Patient received emergent hemodialysis. Patient was then scheduled for thrombectomy. Following thrombectomy patient was kept in the hospital to make sure if AV graft could be accessed following thrombectomy during hemodialysis. Next day AV graft was successfully used during hemodialysis. Vas-Cath/paralysis catheter removed from the right groin. Patient was then discharged home in stable condition with outpatient follow-up. Disposition: DC-01 TO HOME OR SELFCARE Final Discharge Diagnosis (Prints w/discharge instructions): -- ESRD needing dialysis. -- Hemodialysis graft malfunction. -- Hyperkalemia. --Chronic hypotension, patient on midodrine Time spent for discharge: 34 minutes Core Measure Documentation - Palliative Care Palliative Care/ Comfort Measures: Not Applicable - Core Measures Any of the following diagnoses?: none Exam - Physical Exam Narrative exam: GENERAL: well-developed and well-nourished AAM lying on bed appeared to be in no discomfort. HEENT: Normocephalic. Atraumatic. No conjunctival congestion or icterus. Patient has moist mucous membranes. NECK: Supple. Trachea midline. CHEST/LUNGS: Clear to auscultated bilaterally, breathing nonlabored. No wheezes crackles or rhonchi. HEART/CARDIOVASCULAR: Regular in rate and rhythm. S1 and S2 positive. ABDOMEN: Abdomen is soft, nontender. Patient has normal bowel sounds. SKIN: There is no rash. Warm and dry. NEURO: No focal motor deficit. Follows command. MUSCULOSKELETAL: No joint effusion or tenderness. EXTRIMITY: No edema, no cyanosis or clubbing. PSYCH: Cooperative. - Constitutional Vitals: Temp Pulse Resp BP Pulse Ox 99.7 F H 97 H 18 92/42 100 05/01/21 21:19 05/02/21 04:34 05/02/21 04:34 05/02/21 04:34 05/02/21 09:20 Plan Activity: advance as tolerated Weight Bearing Status: Weight Bear as Tolerated Diet: renal Wound: per your surgeon's advice Follow up with: HERNANDEZ CARLSON SHARON [Other] - 3-5 Days
[2021-05-02 17:16] VITALS: BP 91/67
== END 2021-05-02 18:30 | disposition home or self-care (01) | DRG 673 ==
LOC: ED 14:10 → 3A 18:47 → OBSVTOIN 05-01 08:25
PROVIDERS: ADMIT Internal Medicine; ATTEND Internal Medicine
PROC: 5A1D70Z Performance of Urinary Filtration, Intermittent, Less than 6 Hours Per Day (ICD-10-PCS; principal; 2021-04-29)
PROC: 06HY33Z Insertion of Infusion Device into Lower Vein, Percutaneous Approach (ICD-10-PCS; 2021-04-29)
PROC: 5A1D70Z Performance of Urinary Filtration, Intermittent, Less than 6 Hours Per Day (ICD-10-PCS; 2021-04-30)
PROC: 05CY3ZZ Extirpation of Matter from Upper Vein, Percutaneous Approach (ICD-10-PCS; 2021-05-01)
PROC: 057Y3ZZ Dilation of Upper Vein, Percutaneous Approach (ICD-10-PCS; 2021-05-01)
PROC: 5A1D70Z Performance of Urinary Filtration, Intermittent, Less than 6 Hours Per Day (ICD-10-PCS; 2021-05-01)
PROC: B51W1ZZ Fluoroscopy of Dialysis Shunt/Fistula using Low Osmolar Contrast (ICD-10-PCS; 2021-05-01)
PROC: 3E04317 Introduction of Other Thrombolytic into Central Vein, Percutaneous Approach (ICD-10-PCS; 2021-05-01)
DX: T82.41XA Breakdown (mechanical) of vascular dialysis catheter, initial encounter (principal); N18.6 End stage renal disease; I12.0 Hypertensive chronic kidney disease with stage 5 chronic kidney disease or end stage renal disease; Y84.1 Kidney dialysis as the cause of abnormal reaction of the patient, or of later complication, without mention of misadventure at the time of the procedure; E87.5 Hyperkalemia; E66.9 Obesity, unspecified; D63.1 Anemia in chronic kidney disease; Z99.2 Dependence on renal dialysis; Z79.899 Other long term (current) drug therapy; Z79.891 Long term (current) use of opiate analgesic; Z79.01 Long term (current) use of anticoagulants; Y92.89 Other specified places as the place of occurrence of the external cause; Z83.3 Family history of diabetes mellitus; Z82.49 Family history of ischemic heart disease and other diseases of the circulatory system; Z68.30 Body mass index [BMI] 30.0-30.9, adult
CPT/HCPCS: 36415; 36905; 80048; 80053; 80074; 82565; 85025; 85027; 85610; 85730; 93005; 96374; 96375; G0378; C1725; C1757; C1769; C1894; J0610; J0690; J1170; J1644; J1815; J2250; J2405; J2997; J3010; J7040; Q9967